=== PATIENT | female | born 1965 | race Caucasian/White ===

== ENCOUNTER 2021-03-24 08:23 | Day surgery (SDC) | payer MEDICARE ==
[~2021-03-24 08:23] MED LIST: Midazolam 1 MG/ML 2 ML SDV ONE; Propofol 200 MG/20 ML SDV ONE; fentaNYL 100 MCG/2 ML SDV ONE
[2021-03-24] MEDS ORDERED: Lidocaine 0.5% 50 ML SDV ONE (08:25)
[2021-03-24] MEDS ORDERED: Lactated Ringers 1,000 ML IV SCH (09:30)
[2021-03-24] MEDS ORDERED: ceFAZolin 1 GM in Premix Bag 1 BAG IV ONE (09:30)
[2021-03-24] MEDS ORDERED: Nozin Nasal Sanitizer NASBOTH ONE (09:30)
[2021-03-24] MEDS: Bupivacaine 0.5% 30 ML SDV ONE ×3 (09:30→11:19)
[2021-03-24] MEDS ORDERED: traMADol 50 MG Tab PO ONE (12:04)
--- NOTE | 2021-03-26 21:11 | OR ---
DATE OF PROCEDURE: 03/24/2021 SURGEON: Chet Becerril MD PREOPERATIVE DIAGNOSIS: Right carpal tunnel syndrome. POSTOPERATIVE DIAGNOSIS: Right carpal tunnel syndrome. PROCEDURE PERFORMED: Right carpal tunnel release. ANESTHESIA: Behzad block with sedation. INDICATIONS: Maggie is a 55-year-old female with a history of progressive pain and numbness in the fingers of her right hand. 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 She has failed conservative treatment with bracing, and EMGs are consistent with carpal tunnel syndrome. Risks, benefits, and potential complications were discussed. DESCRIPTION OF PROCEDURE: After adequate anesthesia was obtained, the right hand was prepped and draped in a sterile fashion. A longitudinal incision was made distal to the wrist crease in line with the interspace between the long and ring fingers. This was carried down through the subcutaneous tissues and the palmar fascia. The transverse carpal ligament was identified and divided under direct visualization. Transection was carried proximally and distally. Confirmation of complete release was done both visually and by palpation. The contents of the carpal tunnel were evaluated. There were no abnormal space- occupying masses. No significant tenosynovitis. The median nerve did show significant compression with hourglass configuration. The wound was irrigated. The skin was then closed with 3-0 nylon in interrupted mattress fashion. The skin edges were infiltrated with Marcaine, and a sterile dressing was applied. The patient tolerated the procedure well. There were no complications. She was taken from the operating room in stable condition. Chet Becerril MD /[id number]
== END 2021-03-24 12:37 | disposition home or self-care (01) ==
LOC: JP.SDS 08:23
PROVIDERS: ATTEND Specialist
DX: G56.01 Carpal tunnel syndrome, right upper limb (principal); E78.5 Hyperlipidemia, unspecified; E66.9 Obesity, unspecified; Z87.891 Personal history of nicotine dependence; Z88.8 Allergy status to other drugs, medicaments and biological substances; Z68.41 Body mass index [BMI] 40.0-44.9, adult
CPT/HCPCS: 36415; 64721; 80053; 85027; A9270; J0690; J2250; J2704; J3010; J3490; J7120